=== PATIENT | female | born 1995 | race Caucasian/White ===

== ENCOUNTER 2022-12-12 13:20 | Emergency (ER) | payer OTHER, SELFPAY ==
--- NOTE | 2022-12-12 13:31 | ED.NAVMDI ---
HPI - Nausea/Vomiting/Diarrhea General Chief complaint: Nausea/Vomiting/Diarrhea Stated complaint: Bodyaches/Vomiting/ Time Seen by Provider: 12/12/22 13:31 Source: patient, RN notes reviewed and old records reviewed Mode of arrival: ambulatory Limitations: no limitations History of Present Illness HPI Narrative: 27-year-old female presents to the [facility] with complaints of congestion, ear pain, body aches, vomiting. Denies chest pain or abdominal pain. symptoms started with body aches, congestion and ear pain last night. Has been vomiting today, reports it was mucous. Laid down took a nap this afternoon woke up again and vomited 1 more time. Currently sipping on water with Pedialyte. States she is about 9 weeks . Last menstrual period 02 Oct 2022. [facility] States that she was at a wedding this past weekend and a lot of people became sick afterwards Onset (ago): hour(s) Related Data Allergies Allergy/AdvReac Type Severity Reaction Status Date / Time No Known Allergies Allergy Verified 12/12/22 13:32 Review of Systems Review of Systems: All systems reviewed & are unremarkable except as noted in HPI and below Constitutional: Constitutional: Reports as per HPI, Reports body ache(s), Reports fatigue, Reports lethargy and Reports poor appetite Eyes: Eyes: Reports no additional eye complaints ENT: Reports system reviewed and no additional complaints, except as documented Cardiovascular: Cardiovascular: Reports no additional cardiovascular complaints, Denies chest pain and Denies dyspnea Respiratory: Respiratory: Reports no additional respiratory complaints, Denies chest congestion, Denies cough and Denies dyspnea Gastrointestinal: Gastrointestinal: Reports no additional gastrointestinal complaints, Denies abdominal pain, Denies diarrhea, Reports nausea and Reports vomiting (x2 today) Musculoskeletal: Musculoskeletal: Reports as per HPI and Reports myalgias Integumentary/Breasts: Skin/Breast: Reports system reviewed and no additional complaints, except as docu Neurologic: Reports system reviewed and no additional complaints, except as documented Psychiatric: Psychiatric: Reports no additional psychiatric complaints Allergic/Immunologic: Allergic/Immunologic: Reports no additional allergic/immunologic complaints PMFSH Past Medical History Medical History Encounter for surveillance of implantable subdermal contraceptive Surgical History Surgical History History of carpal tunnel release History of foot surgery Hx of tonsillectomy Social History Social History Smoking status: Former smoker Alcohol intake: current Alcohol use details: rare Substance use: current Substance use type: marijuana Lack of Transportation: No Lack of Food: Never True Current Housing: I Have Housing Concerned About Future Housing: No Difficulty Paying Gas/Electric Bills: No Difficulty Paying for Meds: No Currently Unemployed: No Education: Associate Degree Difficulty w/ Childcare or Family Care: No Living arrangements: other Additional living arrangements comments: boyfriend Occupation/Education: occupation Gender identity (if verbalized by the patient): Female Sexual Orientation (if Verbalized by the Patient): Straight or Heterosexual Comments At the time of my signature, I reviewed and agree with the nursing past medical, surgical, social, and family history. There is no relevant family history pertinent to the patient complaint. Exam Const: General: cooperative, healthy appearing, no acute distress, well developed, alert, uncomfortable and well nourished Nutritional Appearance: well nourished Orientation/consciousness: patient oriented x3 Limitations: no limitations HENMT: Head: normal to insp
[2022-12-12 13:32] VITALS: BP 110/61; PULSE 90; RESP 18; TEMP 37.1; O2SAT 100
== END 2022-12-12 14:06 | disposition home or self-care (01) ==
PROVIDERS: Emergency Provider Nurse Practitioner
DX: O98.511 Other viral diseases complicating pregnancy, first trimester (principal); U07.1 COVID-19; Z3A.09 9 weeks gestation of pregnancy; Z87.891 Personal history of nicotine dependence; O99.321 Drug use complicating pregnancy, first trimester; F12.90 Cannabis use, unspecified, uncomplicated
CPT/HCPCS: 87426; 87804; 99213; C9803; G0463

== ENCOUNTER 2022-12-12 14:22 | Emergency (ER) | payer OTHER, SELFPAY ==
[2022-12-12 14:32] VITALS: BP 128/74; PULSE 101; RESP 16; TEMP 37.3; O2SAT 100
== END 2022-12-12 18:39 | disposition left against medical advice (07) ==
DX: R11.2 Nausea with vomiting, unspecified (principal)
CPT/HCPCS: 99199